=== PATIENT | female | born 1950 | race Caucasian/White ===

== ENCOUNTER → 2020-11-28 | Emergency (ER) | payer OTHER ==
[~2020-11-28] VITALS: Ht 162.6 cm; Wt 92.5 kg
[~2020-11-28] MED LIST: ANORO ELLIPTA1 EACH INH; BUPROPION XL300 MG PO; CALCIUM500 MG PO; CEFDINIR300 MG PO; LANSOPRAZOLE30 MG PO; LEVOTHYROXINE50 MCG PO; LISINOPRIL-HCT1 EACH PO; MULTIPLE VITAM1 EAC2 PO; MYRBETRIQ25 MG PO; NORVASC5 MG PO; ROPINIROLE HCL2 MG PO; ROSUVASTATIN CA10 MG PO; TYLENOL325 M1 PO; VENLAFAXINE HCL75 M2 PO; VITAMIN D350 MC3 PO; WELLBUTRIN SR150 MG PO
[2020-11-28 13:17] VITALS: BP 132/82
[2020-11-28 15:35] LABS: ABSOLUTE NEUTROPHILS 3.4 thou/uL (1.4-8.2); BASOPHILS 0.8 % (0.0-2.0); EOSINOPHILS 4.6 % (0.0-3.0); HEMATOCRIT 40.5 % (37.0-47.0); HEMOGLOBIN 13.7 gm/dL (12.0-15.0); LYMPHOCYTES 19.3 % (24.0-44.0); MCHC 33.7 g/dL (28.0-37.0); MCV 97.7 fL (80.0-100.0); MONOCYTES 11.3 % (1.0-8.0); PLATELET COUNT 196 thou/uL (150-400); RBC 4.14 mil/uL (4.20-5.00); RDW 13.6 % (10.5-14.5); WBC 5.4 thou/uL (4.0-11.0)
[2020-11-28 15:45] LABS: CALCIUM 9.7 mg/dL (8.5-10.1); CREATININE 1.1 mg/dL (0.6-1.0); POTASSIUM 3.7 mmol/L (3.5-5.1)
[2020-11-28 17:49] LABS: URINE BILIRUBIN NEGATIVE (Negative); URINE BLOOD 2+ (Negative); URINE CLARITY CLEAR; URINE COLOR YELLOW; URINE GLUCOSE-RANDOM* NEGATIVE (Negative); URINE KETONES NEGATIVE (Negative); URINE LEUKOCYTES-REFLEX TRACE (Negative); URINE NITRITE-REFLEX NEGATIVE (Negative); URINE PROTEIN (DIPSTICK) NEGATIVE (Negative); URINE SPECIFIC GRAVITY 1.025 (1.005-1.035); URINE UROBILINOGEN 0.2 E.U./dl (0.2-1.0)
[2020-11-28 17:57] LABS: AMP/METHAMP Negative (Negative); BARBITURATES Negative (Negative); BENZODIAZEPINES Negative (Negative); COCAINE Negative (Negative); METHADONE Negative (Negative); OPIATES Negative (Negative); PCP Negative (Negative)
[2020-11-28 18:08] LABS: BACTERIA-REFLEX 1-9 Few /HPF (None Seen); CASTS None Seen /LPF (None Seen); CRYSTALS None Seen /LPF (None Seen); SQUAMOUS 0-3 Few /LPF (0-3); URINE RBC 3-10 Few /HPF (0-2); URINE WBC-REFLEX 6-15 Few /HPF (0-5)
[2020-11-28 20:45] VITALS: BP 137/89
--- NOTE | 2020-11-29 07:11 | EKG ---
[address] [address] ELECTROCARDIOGRAM REPORT Name: FATOU NEWBERRY [id number] Admission: 11/28/20 Attend Phys: Discharge: Date of : 48 Report #: [id number] [facility] ED Test Date: 2020-11-28 Test Time: 16:25:15 Pat Name: FATOU NEWBERRY Department: Room: 170 Gender: F Skein Bleacher: vanesa : 1950 Requested By: Aster Reyes Order Number: [id number] MD: Jose Lawson Measurements Intervals [place] Rate: 64 P: 44 CA: 196 QRS: 24 QRSD: 94 T: 9 QT: 406 QTc: 419 Interpretive Statements Sinus rhythm No previous ECG available for comparison Electronically Signed On 11-29-2020 7:10:57 CDT by Jose Lawson [email or web address] <ELECTRONICALLY SIGNED> By: Jose Lawson MD, [facility] 11/29/20 0710 1625 1625 Jose Lawson MD, FACC /EPI
[2020-11-29 07:33] VITALS: BP 138/85
== END ==
LOC: ER 13:11 → EROBS 11-29 06:06 → ER 11-29 06:06
PROVIDERS: Emergency Medicine
DX: R45.1 Restlessness and agitation (principal); Z79.899 Other long term (current) drug therapy; Z20.822 Contact with and (suspected) exposure to COVID-19

== ENCOUNTER 2020-11-29 06:06 | Inpatient (IN) | payer OTHER ==
[~2020-11-29] VITALS: Ht 160 cm; Wt 77.7 kg
[~2020-11-29 06:06] MED LIST changes: -CEFDINIR300 MG PO; -TYLENOL325 M1 PO
--- NOTE | 2020-11-29 07:50 | NUR ---
PT ARRIVED TO UNIT VIA CART. PT HAS CANE AND ASSISTED HER TO DINING ROOM. GOT PT BELONGINGS AND GAVE HER A WALKER TO ASSIST WITH AMBULATION. PT ACCEPTING OF ADMIT. PT GIVEN BREAKFAST TO EAT. PT TOLERATED WELL WITHOUT ANY ISSUES.
[2020-11-29 08:00] VITALS: BP 124/80
--- NOTE | 2020-11-29 09:00 | NUR ---
KASSY MATT INTERVIEWING HER ON HER HISTORY. PT STATED SHE DOES SMOKE AND IF SHE COULD SNEAK IN HER E-CIG SHE COULD SMOKE IN HER ROOM. PT GOING OVER HER HX OF MEDICAL AND MENTAL HEALTH. PT STATED SHE WAS AT [facility] AND SHE HAD A BLEED AND PASSED BLOOD WITH CLOTS, BUT WAS UNABLE TO REMEMBER IF IT WAS STOOL. PT STATED SHE WAS GOING TO GET GI PROCEDURE, BUT THEY CANCELLED IT. SHE DID SAY HER BP CAME UP AND THEN SHE WAS DISCHARGE. PT DIDN'T REMEMBER IF SHE GOT BLOOD OR NOT, PT DID SAY SHE WAS HOOKED UP TO IV LINES. SHE DID SAY SHE BRUISED EASILY.
[2020-11-29 09:29] VITALS: BP 124/80
[2020-11-29] MEDS ORDERED: TYLENOL325 M1 PO (09:33)
[2020-11-29] MEDS ORDERED: CALCIUM500 MG PO (09:34)
[2020-11-29] MEDS ORDERED: CEFDINIR300 MG PO (09:40)
--- NOTE | 2020-11-29 11:29 | NUR ---
PT STATED SHE HAS SOME PAIN TO LEFT KNEE OF 8 ON 1-10 SCALE. PT ALSO HAVING PAIN TO LEFT. ADM TYLENOL 325MG 2 TABS PO FOR PAIN.
--- NOTE | 2020-11-29 12:10 | NUR ---
PT UPSET ABOUT NO SEAT COVERS FOR TOILET. PT ASKING IF WE HAVE INFECTION CONTROL HERE. PT SAID THAT THIS PLACE IS NOT SUITABLE FOR INPATIENT. PT SAID I GUESS I WON'T BE ADMITTED THEN.
--- NOTE | 2020-11-29 13:19 | NUR ---
As MANAGER WOMEN approached the nurses station, Cayla heard another staff discussing a pt who had become irritated yesterday and began using profanity towards staff. Cayla looked at job specification writer and stated, "and if someone doesn't answer my question that's what I'm going to be doing soon." MANAGER WOMEN asked if she could help Cayla who asked, "isn't there a community arts officer here? I just need help with one question." MANAGER WOMEN explained that US was on lunch and would return in 30 minutes. Pt immediately becomes agitated stating, "I'm paying to be here and she can't answer one question? I can't get a minute of her time?" MANAGER WOMEN relays that US will return in 30 minutes and walks away as pt follows closely stating, "oh thanks. You're a real agreeable person."
--- NOTE | 2020-11-29 14:30 | NUR ---
GOT A PHONE CALL FROM ANGELICA FOREMAN A FRIEND OF 40 YRS STATED THAT A FEW WEEKS AGO FATOU WENT TO URGENT CARE FOR DIZZINESS. SHE ENDED UP GOING TO [facility] FOR BP ISSUES. THE PT WAS TOLD TO HOLD ONE PILL AND SHE THOUGHT THAT IT WAS ALL HER MEDS. ANGELICA STATED FATOU HAS BEEN BIPOLAR MOST OF HER LIFE AND SHE OFFERED TO HELP HER SET UP HER MEDS AND FATOU THROUGH A FIT AND REFUSED HER HELP. SHE ALSO STATED THAT FATOU USES A CPAP AT NIGHT AND HAS NOT BEEN USING IT. ANGELICA ASKED WHY SHE ISN'T WEARING HER CPAP AND KNOWING WHAT THE DANGERS OF NOT WEARING IT, SHE SAID I KNOW. FATOU SAID THAT HER IS MAD AT HER AND THAT GOD HATES HER AND DON'T KNOW WHAT HE WANTS FROM ME. ANGELICA SAID FATOU THOUGHT IT WAS LENT THE OTHER DAY. SHE ALSO SAID FATOU HASN'T HAD MUCH SLEEP AND ONLY AND HOUR A NIGHT. HER SON CAME FROM [facility] TO STAY A COUPLE OF DAYS TO CONVINCE HER TO COME TO THIS HOSPITAL. HER ALSO LEFT THE HOUSE A COUPLE OF DAYS. ANGELICA SAYS IF SHE IS ALLOWED TO GO HOME, THAT SHE FEARS THAT SHE WILL NOT BE SAFE. FATOU IS GNOSTICISM AND TALKED TO A MEDICAL/SURGERY REGISTERED NURSE AND SAID THAT THERE IS PASSIVE SI DUE TO OMISSION. ANGELICA SAYS THAT IS THE TICKET FOR FATOU IS THE OMISSION OF MEDS AND USING CPAP.
[2020-11-29] MEDS ORDERED: BUPROPION XL300 MG PO (16:47)
[2020-11-29] MEDS ORDERED: LISINOPRIL-HCT1 EACH PO (17:25)
--- NOTE | 2020-11-29 17:57 | NUR ---
PT CHARLIE CAME TO VISIT. PT SHOWED HIM THE ADMISSION PAPERWORK. HE WENT OVER AND FINISHED SIGNING THEM. SHE NEEDED A SEAT RISER FOR THE TOILET DUE TO NEEDING ASSISTANCE WITH GETTING OFF THE LOW TOILET. THIS WEAVER NEEDLE LOOM PUT A COMMODE ON TOP OF TOILET.
[2020-11-29 18:31] LABS: ALBUMIN 3.6 g/dL (3.4-5.0); DIRECT BILIRUBIN 0.2 mg/dL (<0.1-0.2); TOTAL BILIRUBIN 1.1 mg/dL (0.2-1.0); TOTAL PROTEIN 6.3 g/dL (6.4-8.2)
--- NOTE | 2020-11-29 18:42 | NUR ---
PT CALLING TO SEE IF HE HAS HER PURSE. SHE REMEMBERS HIM COMING TO VISIT. PT FRIEND IS ANGELICA AND HER NUMBER IS [phone]. PT DOES GET SHORT TEMPERED WHEN AGITATED.
[2020-11-29 19:10] VITALS: BP 134/84
[2020-11-29 20:00] VITALS: BP 134/84
--- NOTE | 2020-11-30 02:02 | NUR ---
PATIENT HAS BEEN OUT SOCIALIZING WITH PATIENT'S IN DINING ROOM THIS EVENING. SHE HAD ICECREAM FOR A SNACK. SHE REQUESTED TO TAKE ROPRINOLE EARLY SO SHE COULD SLEEP. ORDER OBTAINED AND GIVEN TO PATIENT CLOSE TO BED TIME. MUSCLE CREAM ORDERED AND APPLIED TO LEFT THIGH. ALSO PLACED A WARM COMPRESS TO THE THIGH. PATIENT WENT BACK TO BED AND SLEPT BUT WANTED WARM COMPRESS WARMED BACK UP FOR COMFORT. TYLENOL 650MG PO GIVEN AROUND MIDNIGHT ALSO. PATIENT'S PAIN LEVEL WAS 5 OUT OF 10. PATIENT IS SLEEPING AT THIS TIME. SHE SLEEPS IN SPURTS AND THEN GETS UP TO THE BATHROOM OR WALKS AROUND IN THE ROOM AND BACK TO BED. PATIENT APPEARS RESTLESS. SHE DENIES SI/HI/AVH. PATIENT WALKS WITH WALKER AND HAS STEADY GAIT BUT IS A FALL RISK D/T WITHIN LAST 3 MONTHS SHE HAD INCIDENT WHERE HER LEGS WOULD JUST GO OUT FROM UNDER HER. BED IN LOW POSITION. ROUTINE ROUNDS TO ASSESS STATUS AND SAFETY TO PATIENT.
--- NOTE | 2020-11-30 04:08 | NUR ---
PATIENT CONTINUES TO BE UP EVERY 2 HOURS TO VOID. NO BURNING OR PRESSURE ON URINATION. PATIENT HAS HAD WARM COMPRESS FOR LEFT THIGH WARMED UP 3 TIMES SO FAR TONIGHT BUT STATES IT DOES BRING COMFORT TO THE LOW ACHE IN THIGH. PATIENT NOT RESTING FOR LONG PERIODS OF TIME. CONTINUING TO MONITOR. BED IN LOW POSITION AND BED ALARM IS ON.
[2020-11-30 09:10] VITALS: BP 132/57
--- NOTE | 2020-11-30 09:32 | NUR ---
Alert and orientated X4. Calm, cooperative and compliant. Interacting with peers and staff, participating in group. Denies SI/HI. Would like to shower today and compare med lists of medication she is on currently compared to list from previous hospitalization and home. Breath sounds clear. Reg HR auscultated. Color pink with brisk capillary refill and palpable peripheral pulses. Independent with voiding. Reports frequent voiding and occassional incontinence. Ambulates with regular, steady gait with walker.
--- NOTE | 2020-11-30 12:03 | NUR ---
ARGELIA and Dr. Sue met with pt, and had pt's on the phone. Pt had difficulty sitting still in her seat; she was more focused on finding her folder, her pencil, and paper. Pt's gave some feedback and said that while he dealt with her olvin at the beginning of their marriage and throughout, but this is the worst he has ever seen her. 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 SW team will continue to follow pt during his stay on this unit.
[2020-11-30 19:09] VITALS: BP 144/87
--- NOTE | 2020-11-30 21:41 | NUR ---
assumed kumar on 11/30/20 @ 1900, in her room, fussing with her toileries and hospital pants. Refused meds and assessment, because she said she wanted to go find some more pjs. Refused to listen to explaination that I will be getting the hospital pants for her, and that I needed to give her meds, she walked out of the room with a pair of hospital pants. When I returned to give her her meds she pounded the walker on the floor in a physically agressive manner. Asked for a list of the meds she was taking, and I wrote those down for her on a piece of her paper. She read it and said she aproved. Denies additional needs and says she is going to be awake for a while.
[2020-11-30 21:47] VITALS: BP 144/87
--- NOTE | 2020-12-01 09:07 | NUR ---
Assess due to new admit to [facility] for agression, agitation. Tolerating meals well, 75-100%. Wt is obese with BMI 31. Meds reviewed. B12 wnl. Low nutrition risk
[2020-12-01 12:26] LABS: HEMATOCRIT 45.4 % (37.0-47.0); HEMOGLOBIN 15.2 gm/dL (12.0-15.0); MCH 32.7 pg (26.0-34.0); MCHC 33.5 g/dL (28.0-37.0); MCV 97.8 fL (80.0-100.0); RBC 4.64 mil/uL (4.20-5.00); RDW 13.5 % (10.5-14.5); WBC 6.7 thou/uL (4.0-11.0)
[2020-12-01 19:27] VITALS: BP 123/81
--- NOTE | 2020-12-01 21:27 | H ---
[facility] [place] [address] HISTORY AND PHYSICAL Name: FATOU NEWBERRY Room #: 522A-A ADM IN M.R.#: [id number] Admission: 11/29/20 Attend Phys: Rigo Sue DO Discharge: Date of : 48 Report #: [id number] THIS REPORT FOR: cc: Nasreen Jung MD, Amir R. MD Kerstein,Rigo Kwong DO ~ DATE OF SERVICE: 11/29/2020 INPATIENT PSYCHIATRIC EVALUATION ATTENDING PHYSICIAN: Rigo Sue DO INSTRUCTIONAL DEVELOPER: Adriana Costa MD REASON FOR ADMISSION: Olvin, anxiety, inability for to care for the patient. SOURCES OF INFORMATION: Emergency Room records, interview with the patient. The patient is a full code and her own decision maker at this point. HISTORY OF PRESENT ILLNESS: This is a 70-year-old female voluntary admission. The patient presented to the Emergency Room on Sunday evening. She has been having quantity increased episodes of "violence" and memory difficulties for the past few weeks. reports episodes in which she bangs on the wall and she also throw profanities, which is unlike her base time. She has become increasingly violent during interactions, is slamming things when frustrated and has become irritated with others faster. The patient recently had a hospitalization for abdominal pain, dehydration, hematochezia reportedly at [facility]. Physician there discussed changing and identifying medications but nothing was changed and she was discharged. Since then given her increased confusion the patient and her are concerned with the possibility of medications being missed or mixed up altogether. The patient has been seeing Dr. Jani Crane, psychiatrist and [facility] for several years and reportedly he has ruled out the dementia. I left a voicemail for Dr. Crane to call me. I have not received a reply at this time to discuss the dementia workup that was done and his observations of the case. Additionally, the ER reported the patient had an appointment with Dr. Crane yesterday. I am guessing that was the 11/27/2020 or 11/28/2020 that probably told by telepsych and he told the patient she needs to be hospitalized and her medications need to be reconciled as soon as possible. The patient was unwilling at first to do so, but after her called her son to talk with her she became agreeable. The ER noted the patient has a long history of mental health issues and "good and bad days" per . She was not suicidal or homicidal in the ER. Denied physical complaints. [address] [address] HISTORY AND PHYSICAL Name: FATOU NEWBERRY Room #: 522A-A [facility] IN M.R.#: [id number] Admission: 11/29/20 Attend Phys: Rigo Sue, Discharge: Date of : 48 Report #: [id number] ALLERGIES: No known drug allergies. LABORATORY DATA: From the ER, sodium 144, potassium 3.7, chloride 107, bicarbonate 29, anion gap 8, BUN 15, creatinine 1.1, estimated GFR 49, glucose 82, calcium 9.7. Hematology: White count 5.4, H and H 13.7 and 40.5, platelet count 196, COVID-19 PCR was negative. Urine drug screen was negative. Urinalysis showed a few leukocytes, rbc's, few squamous cells, 1-9 bacteria, trace leukocyte esterase and nitrites were negative, and blood was 2+. Other laboratories done, did the hepatic function tests just starting Depakote, total bilirubin 1.1, direct bilirubin 0.2, AST 17, ALT 23, alkaline phosphatase 81, total protein 6.3, albumin 3.6. B12 level 606, TSH 2.377, both of which are normal. PHYSICAL EXAMINATION: VITAL SIGNS: Today, temperature 36.2, pulse 60, respirations 16, BP 124/80, O2 sat 99%. There is not a weight listed; checked under different area, that has not been done. BACKGROUND HISTORY: The patient gave the developmental history, born and raised in [place], [place]. Her father was a manual labor. Her mother was a registered nurse at a local hospital there. 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 Her was at the [employer]. They were stationed at [facility]. She has one son who is now 51. Her initial had an infidelity. She was . She was remarried to her current , Nikolas. They have been about 20 years. The patient did not outright admit she had bipolar 1 disorder, though this I got from nursing report to me she seemed more familiar with the term manic depression. Denied schizophrenia. Denied family history of mental illness. PAST MEDICAL HISTORY: Hospitalist noted was hypertension, hyperlipidemia. EKG was done, sinus rhythm. QTC was 419, normal rate. She apparently also has hypothyroidism to medical problems. FAMILY HISTORY: For Psychiatric and medical disease is unknown. Additional medical problems, bladder, urgency, history of cervical cancer, possible COPD, who also smells, does have a history of smoking cigarettes, though she did not admit that to me. REVIEW OF SYSTEMS: Ten-point review of systems was reviewed by the hospitalist are negative. CURRENT MEDICATIONS: Oxybutynin 10 mg oral daily, pantoprazole 40 mg oral daily, levothyroxine 50 mcg oral daily, Depakote ER schedule 750 mg at bedtime [facility] [address] [place] [address] HISTORY AND PHYSICAL Name: FATOU NEWBERRY Room #: 522A-A ADM IN .R.#: [id number] Admission: 11/29/20 Attend Phys: Rigo Sue DO Discharge: Date of : 48 Report #: [id number] tonight, atorvastatin 20 mg p.o. at bedtime, cefuroxime 250 mg p.o. b.i.d. for 5 days for possible UTI, amlodipine 5 mg oral daily for hypertension. Otherwise, Tylenol was noted to be ordered. She also has albuterol, ipratropium bromide 3 mL inhaled q. 4 hours p.r.n. ordered. MUSCULOSKELETAL EXAM: Assisted gait with walker, a little bit kyphotic, slow. MENTAL STATUS EXAMINATION: This is a well-developed, fairly nourished female appearing nearly stated age. Attention intact. Concentration intact. Speech pressured. mood/affect, irritable, manic grandiose congruent Thought process is linear in general. Thought content: Focused on the questions I asked. Some psychomotor agitation. No psychomotor retardation. Denied SI or HI. Denied auditory, visual, or tactile hallucinations. Memory not formally tested. Insight limited. Judgment limited. Fund of knowledge least average. FORMULATION: A 70-year-old female brought in by with the apparent olvin going on. DIAGNOSES: Bipolar 1 disorder, most recent episode manic, severe hypertension, hyperlipidemia, hypothyroidism. PLAN: Evaluate, stabilize, obtain collateral. I have started her on Depakote ER 750 mg p.o. at bedtime. Blood level 4-5 days. We will continue to monitor mood. STRENGTHS: She is insured, supportive family. WEAKNESSES: Advancing age along with history of mental health problems. greater than 60 minutes spent on case- greater than 50% of time psent on review of records and coordination of care <ELECTRONICALLY SIGNED> By: Rigo Sue DO 12/01/202126 46 27 Rigo Sue DO /nt
--- NOTE | 2020-12-02 02:49 | NUR ---
Assumed care on 12/01/20 @ 1900, socializing with two other female peers. Cooperated with assessment, A&Ox 4. Pleasant affect. Some confusion noted. Effort shown to present an improved affect. Expresses a desire to return home. Reports anxiety level of 6/10 and Depression of 6/10. Denies EDMONDSON/HV. Spoke to her on the phone. She commented on the conversation with her , saying, "I lean on him too much". VSS. HRRR, Lungs CTA, ABD n x 4Q. Reports IBS symptoms, no BM today, reports BM yesterday. Awoke @ about 0200 in the NOC. Some confusion noted. Sat up in the day room for a while, Toileted self and returned to bed. Bed in low position, will continue to monitor as per unit protocol.
[2020-12-02 03:11] VITALS: BP 123/81
[2020-12-02 09:25] VITALS: BP 133/82
--- NOTE | 2020-12-02 15:55 | NUR ---
0700 ASSUMED CARE OF PATIENT. PATIENT AMB WITH SLOW AND STEADY GAIT WITH WALKER. PATIENT SITS WITH OTHERS COMMUNICATING WELL. AT TIMES PATIENT YELLS AT STAFF CURSING AND USING WAKER TO STOMP WITH. PATIENT DOES NOT LIKE TO BE HELPPED WHEN NEEDES AND GETS UPSET WHEN STAFF TRYS TO ASSIST WITH NEEDS. PATIENT PRESENT IN GROUPS TODAY. MEDICATION TAKEN WHOLE WITHOUT DIFFICULTY. BS ACTIVE, NO C/O PAIN. DENIES SI/HI
[2020-12-02 19:31] VITALS: BP 134/87
[2020-12-03 03:40] VITALS: BP 134/87
--- NOTE | 2020-12-03 04:02 | NUR ---
Assumed care on 12/02/20 @ 1900, says she has pain, but then Refused to answer what her pain level is. Tylenol 650 and Jac Webster topical rub provided for knee and back pain. Uses a walker to ambulate, retired to bed @ , bed in low position, bed alarm set. Will continue to monitor for safety and comfort as per unit protocol.
[2020-12-03 09:12] VITALS: BP 121/74
[2020-12-03 10:25] VITALS: BP 121/74
--- NOTE | 2020-12-03 10:52 | NUR ---
1045 RESUMMED CARE FROM OVERNIGHT SHIFT THIS AM, PATIENT ALERT ORIENTED TIMES 4. PATIENT CALM COOPERATIVE PATIENT DENIES SI/HI/AH/VH AT PRESENT. PATIENTS ABDOMEN SOFT BOWEL SOUNDS PRESENT PATIENTS LUNGS CLEAR. PATIENT TAKES MEDICATION WITHOUT INCIDENCE. PATIENT PARTICIPATES IN GROUPS WILL CONTINUE TO MONITOR PATIENT SAFETY AND BEHAVIORS.
[2020-12-03 19:34] VITALS: BP 112/73
--- NOTE | 2020-12-04 01:03 | NUR ---
Alert and orientated X4. Denies SI/HI. Ambulating around room with walker without s/o distress, slightly irregular gait. Breath sounds clear. Reg HR auscultated. Color pink with brisk capillary refill and palpable peripheral pulses. Independent with voiding. Active bowel sounds over soft, rounded abdomen. Currently sleeping without s/o distress.
[2020-12-04 09:01] VITALS: BP 135/78
--- NOTE | 2020-12-04 18:27 | NUR ---
0700 ASSUMED CARE OF PATIENT. PATIENT AMB WITH WALKER WITH STEADY GAIT. PATIENT WANTS TO DO EVERYTHING INDEPENDENTLY WITHOUT ASSISTANCE. PATIENT GETS MAD WHEN LIFE SCIENCE TEACHER ATTEMPTS TO HELP PATIENT. MEDICATION TAKEN WHOLE WITHOUT DIFFICULTY. LS CLEAR, BS ACTIVE, NO C/O PAIN. VISITOR HERE TO VISIT WITH PATIENT. DENIES NEEDS AT THIS TIME.
[2020-12-04 19:38] VITALS: BP 111/60
--- NOTE | 2020-12-05 00:41 | NUR ---
Alert and orientated X4. Denies SI/HI. Sad, flat affect. Ambulates with slow gait using walker. Breath sounds clear. Reg HR auscultated. Color pink with brisk capillary refill and palpable peripheral pulses. Yellow urine per toilet. Active bowel sounds over soft, rounded abdomen. States she has pain in her feet but declines medication. Currently sleeping without s/o distress.
[2020-12-05 08:49] VITALS: BP 111/93
--- NOTE | 2020-12-05 17:45 | NUR ---
ASSUMED CARE OF PATIENT, PATIENT IN BED AT THAT TIME. PATIENT AMB USING WALKER WITH STEADY GAIT. NO BEHAVIORS NOTED FROM PATIENT. PATIENT CONFUSED AND FORGETFUL AT TIMES. MEDICATION TAKEN WHOLE WITHOUT DIFFICULTY. NO C/O PAIN, LS CLEAR , BS ACTIVE LBM 12/03/20.
[2020-12-05 19:20] VITALS: BP 113/71
--- NOTE | 2020-12-05 22:55 | NUR ---
PT AMBULATING TO BATHROOM WITH ASSIST X1 AND IS TOLERATING FAIR. DENIES PAIN. RESTING COMFORTABLY. NO NEEDS VOICED. FREQUENT OBSERVATION.
[2020-12-06 08:48] VITALS: BP 110/67
--- NOTE | 2020-12-06 11:55 | NUR ---
ARGELIA and Dr. Sue both called pt's to give an update. He said he was out of town working in [facility]. He said he will not be in for a visit today. He was currently driving. Dr. Sue asked him to call his cell when he was available. ARGELIA team will continue to follow pt during her stay on this unit.
--- NOTE | 2020-12-06 12:29 | NUR ---
0700 ASSUMED CARE OF PATIENT, PATIENT IN DAYROOM AT THAT TIME. PATIENT AMB WITH WALKER WITH STEADY GAIT. NO C/O PAIN. LS CLEAR, BS ACTIVE. PATIENT PRESENT IN GROUP THIS AM. MEDICATION TAKEN WHOLE WITHOUT DIFFICULTY. PATIENT CONFUSED AND VOICED CONCERN RARDING HER CUP OF WATER BEING THROWN AWAY. PIPE CLEANER ATTEMPT TO EXPLAIN ABOUT LEAVING DRINKS ON TABLES, PATIENT WOULD NOT LISTEN AND STATES "IT DOES NOT MATTER, ITS MY DRINK". WILL CONTINUE TO OBSERVE.
[2020-12-06 19:34] VITALS: BP 129/112
--- NOTE | 2020-12-07 01:41 | NUR ---
MEDICATION GIVEN WHOLE WITH WATER PT TOLERATED MEDS WELL. DENIES PAIN, N/V. UP WITH ASSISTX1 WITH A WALKER. FREQUENCY IN URINATION. FALL PREC MAINTAINED WILL CONT TO MONITOR.
[2020-12-07 08:51] VITALS: BP 153/84
--- NOTE | 2020-12-07 08:53 | NUR ---
RT Progress Note- Cayla is present in the milieu each day as well as most recreation therpay groups. Cayla's participation is variable; at times she has difficutly focusing on discussion/activity and is wrapped up in her own agenda. She can be irritable when refocusing, but is not aggressive. Cayla occasionally socializes with female peers on unit during unstructured times. TIMBER TRIMMER will continue to encourage participation and improved focus.
--- NOTE | 2020-12-07 11:57 | NUR ---
Followup: remains on [facility]. Intake has dropped a little, now 25-100% past few days, Wt is stable over past week at 177 lb. Note no BM since 12/03-consider stool softner. Otherwise remains low nutrition risk and will continue to follow intake and wt trends.
--- NOTE | 2020-12-07 17:32 | NUR ---
0700 ASSUMED CARE OF PATIENT, PATIENT IN BED AT THAT TIME. PATIENT AMB WITH STAEDY GAIT USING WALKER. MEDICATION TAKEN WHOLE WITHOUT DIFFICULTY . PRESENT IN GROUP THIS AM. NO C/O PAIN, BS ACTIVE. PATIENT PREFERS TO DO THIS ALONE WITHOUT ASSISTANCE. CALM AND COOPERATIVE. A + O X4.
[2020-12-07 19:03] VITALS: BP 106/54
--- NOTE | 2020-12-08 02:23 | NUR ---
ASSESSMENT: PT REMAIN ALERT AND ORIENT TIMES FOUR. UP INDEPENDANTLY WITH WALKER. REMAINED CALM AND COOPERATIVE THROUGH OUT THE SHIFT. VSS. AFEBRILE. LIKES TO DO THINGS FOR HERSELF. TOOK MEDS WITHOUT DIFFICULTY. BM LAST ON . DENIES PAIN, SOB AND N/V. WILL CONTINUE TO MONITOR.
[2020-12-08 11:33] VITALS: BP 130/64
[2020-12-08 11:35] VITALS: BP 113/72
--- NOTE | 2020-12-08 11:50 | NUR ---
ARGELIA and Dr. Sue met with Ray (Nikolas) and provided an update. He would like to take have pt placed in respite to get an idea of what it will require to take care of her going forward. ARGELIA provided Nikolas with a list of nursing homes to consider for respite care. Pt's anticipated d/c will be at the beginning of the week. SW team will remain available.
--- NOTE | 2020-12-08 13:40 | NUR ---
PATIENT HAS BEEN UP, AND OUT ON THE UNIT, AMBULATE WITH ASSIST OF ROLER WALKER, GAIT SLIGHTLY UNSTEADY. PATIENT TOOK ALL MORNING MEDICATION WHOLE WITHOUT DIFFICULTY, SHE IS EATING MEALS, AND DRINKING FLUID WELL. PATIENT DENIES SUICIDAL/HOMICIDAL IDEATION, SHE DENIES DEPRESSION/ANXIETY. ORTHOSTATIC BLOOD PRESSURE SITTING/STANDING ORDERED BY DR. BABIN COMPLETED, CHARTED, AND DR. BABIN NOTIFIED OF THE RESULT. PATIENT STATES HER LAST BOWEL MOVEMENT WAS ON 12/07/20. NO AGITATION OR IRRITABLE BEHAVIOR NOTED AT THIS TIME. AFFECT IS FLAT/BLUNTED, MOOD IS CALM, NO SIGN OF ACUTE DISTRESS NOTED AT THIS TIME, WILL MONITOR FOR SAFETY.
[2020-12-08 19:36] VITALS: BP 97/60
--- NOTE | 2020-12-09 02:59 | NUR ---
Alert and orientated X4. Denies SI/HI. Ambulating with slow, steady gait with walker. Calm and cooperative, flat affect. Breath sounds clear. Reg HR auscultated. Color pink with brisk capillary refill and palpable peripheral pulses. Independent with voiding. States she had BM yesterday. 2 cm circular area in L inguinal fold with erythema and excoriation. Currently sleeping without s/o distress.
[2020-12-09 09:34] VITALS: BP 106/61
[2020-12-09 11:58] VITALS: BP 106/61
--- NOTE | 2020-12-09 12:26 | NUR ---
Assumed pt care at 0700. pt was alert and oriented x3. pt took meds whole, no difficulty noted. Assessments completed, vss. Pt DENIES SI/HI. No c/o pain at this time. Pt ambulates with a walker. Calm and co-operative with care. No sign of acute distress noted at this time. Will continue to monitor pt.
[2020-12-09 20:30] VITALS: BP 133/58
--- NOTE | 2020-12-10 00:15 | NUR ---
Alert and orientated to person and time and situation. Initially stated she was at [facility]. Seems to be ambulating much more slowly with regular, steady gait with walker. Also requiring more help with directions to her room and with assistance getting in and out of bed. Denies SI/HI. Breath sounds clear. Reg HR auscultated. Color pink with brisk capillary refill and palpable peripheral pulses. Incontinent of yellow urine. Active bowel sounds over soft, rounded abdomen. Currently sleeping without s/o distress.
[2020-12-10 10:05] VITALS: BP 113/69
[2020-12-10 10:58] VITALS: BP 113/69
--- NOTE | 2020-12-10 11:50 | NUR ---
Assumed pt care at 0700. pt was calm and co-operative with care. Assessments completed, vss. pt took meds whole, no difficulty noted. ALERT AND ORIENTED X3. AMBULATES WITH A WALKER. PARTICIPATED IN GROUPS. Denies si/hi. there is no c/o of pain at this time. BANQUET BARTENDER assisted pt with a shower. Will continue to monitor pt.
--- NOTE | 2020-12-10 14:44 | NUR ---
ARGELIA spoke with pt's Ray and obtained his prefernces for referrals for a skilled/respite stay for pt. [facility] will continue to follow pt during her stay on this unit.
[2020-12-10 19:29] VITALS: BP 123/69
--- NOTE | 2020-12-10 22:50 | NUR ---
Alert and orientated to person and situation, unable to recall day and thinks she is at [facility]. Watching TV with peers prior to meds. Denies SI/HI. States she did not have good visit with today, states he is making different plans other than what they had originally agreed. After meds she seemed more confused and had difficulty with directions t/o unit. Came out into hallway topless with shirt on floor. When asked where she was going she stated she was trying to find bathroom. Needed alot more assistance toileting and getting to her feet from toilet. Breath sounds clear. Reg HR auscultated. Color pink with brisk capillary refill and palpable peripheral pulses. Yellow urine per toilet. Active bowel sounds over large, soft, rounded abdomen. Declines MOM stating that she feels she does not need it yet. Last BM was 12/07/20. States she had large BM at that time. Ambulating slowly with steady gait with walker. Currently resting in bed without s/o distress.
[2020-12-11 08:23] VITALS: BP 104/64
--- NOTE | 2020-12-11 17:53 | NUR ---
Assumed pt care at 0700. pt was alert and oriented x3. pt took meds whole, no difficulty noted. Assessments completed, vss. Denies si/hi. At this time there is no c/o pain. ambulates with a walker. participated in groups. no sign of acute distress noted upon assessments. calm and co-operative with care. will continue to monitor.
[2020-12-11 19:35] VITALS: BP 130/79
--- NOTE | 2020-12-11 23:09 | NUR ---
PT WANDERS IN DAY ROOM AND MACE WITH WALKER, CHECKING ON TABLES, LEGS, DOORS. PT TALKING ABOUT MATH AND FURNITURE. HUNCHED OVER, POOR EYE CONTACT, MUMBLED SPEECH AT TIMES. COMPLIANT WITH MEDS AND SNACK. INCONTINENT. COMPLIANT WITH ADL CARE. BED ALARM ON. BLE EDEMA DUSKY SKIN TONE.
[2020-12-12 09:30] VITALS: BP 123/64
[2020-12-12 10:41] VITALS: BP 123/64
--- NOTE | 2020-12-12 11:04 | NUR ---
ASSUMED CARE AT 0700 THIS MORNING. PT. IS AWAKE, DRESSED AND ON THE UNIT. SHE IS COOPERATIVE WITH THIS RN TAKING HER MEDICATIONS. HER LEGS BILAT. HAVE A PURPLEISH COLOR AND IS EDEMATIOUS AND FIRM. SHE DECLINED MOM ALTHOUGH HER LAST BM WAS 12/07/20. HER VSS. SHE GOT A ONE TIME DOSE OF FLUCANOZOLE TODAY. WILL CONTINUE TO MONITOR.
--- NOTE | 2020-12-12 13:58 | NUR ---
RT PROGRESS NOTE- AT THIS TIME FATOU'S PARTICIPATION IN THE [facility]U AND RECREATION THERAPY GROUPS HAS BEEN GREAT. FATOU HAS STRUGGLED WITH REMEMBERING THINGS BUT CAN BE EASILY REDIRECTED. SHE ACCEPTS THAT SHE HAS TROUBLE WITH MEMORY AND ACCEPTS ASSISTANCE WHEN NEEDED.
[2020-12-12 19:27] VITALS: BP 131/60
[2020-12-12 20:15] VITALS: BP 131/60
--- NOTE | 2020-12-13 02:30 | NUR ---
PATIENT WAS UP WITH WALKER TONIGHT. SHE IS IMPULSIVE AND RESTLESS. SHE KEPT WANTING TO GET UP AND MOVE FROM ONE CHAIR TO ANOTHER. SHE MOVES VERY SLOW AND SO IT TOOK ALOT OF EFFORT EVERY TIME SHE WOULD STAND AND DECIDE TO MOVE SOMEWHERE ELSE. PATIENT IS A/0X1. SHE SITS HUNCHED OVER. SHE WAS HALLUCINATING TONIGHT THINKING SHE SAW THINGS ON THE FLOOR AND TRYING TO PICK THEM UP. PATIENT HAD HS SNACK OF ICE CREAM. SHE TOOK HER MEDS WHOLE WITH WATER. SHE DENIES PAIN. NO SI/HI BEHAVIORS OR STATEMENTS NOTED. PATIENT ASSISTED TO BED X1. SHE HAS BEEN SLEEPING SINCE PLACED IN BED. BED IN LOW POSITION AND BED ALARM IS ON. ROUTINE MONITORING TO ASSESS FOR SAFETY AND STATUS OF PATIENT.
[2020-12-13 10:20] VITALS: BP 127/60
[2020-12-13 13:13] LABS: BE(vivo) 3.1 mmol/L (-2 to +3); HCO3 26.2 mmol/L (22.0-26.0); PCO2 35.6 mmHg (35.0-45.0); pH 7.485 (7.360-7.450); sO2 96.2 % (92.0-98.0)
--- NOTE | 2020-12-13 13:23 | NUR ---
Nikolas, pt's , contacted ARGELIA to get an update on if she has been accepted to skilled. ARGELIA provided the update that she is not ready for d/c because Dr. Sue is switching her psych meds to see if it controls her hallucinations better. He said ok. ARGELIA told him she will follow-up with the referrals she has already sent. He said okay. He said he will visit pt during the evening visitation hours and wants to visit with Dr. Sue. ARGELIA provided this update to Dr. Sue. SW Team will continue to follow pt during her stay on this unit.
[2020-12-13 13:48] VITALS: BP 127/60
--- NOTE | 2020-12-13 15:51 | NUR ---
1550 RESUMMED CARE FROM OVERNIGHT SHIFT THIS AM, PATIENT IN ROOM QUIET. I GOT PATIENT UP FOR BREAKFAST SHE ATE TOOK MEDICATION WITHOUT INCIDENCE. PATIENT ALERT ORIENTED TIMES 2 PATIENT DENIES SI/HI/AH BUT DOES HAVE VH AT TIMES. PATIENT BENDS DOWN AND ACTS LIKE SHE IS PICKING THINGS THAT ARE NOT THERE ON THE FLOOR. PATIENTS ABDOMEN SOFT BOWEL SOUNDS PRESENT PATIENTS LUNGS CLEAR. ABOUT 10:00 AM PATIENT IN DAY ROOM SEEMED LETHARGIC WE TOOK VITALS PULSE WAS 65. DR ZAZUETA CAME AND ORDERED ARTERIAL BLOOD GAS, THE RESULTS SHOWED HIGHS AND LOW RESULT. PATIENT TOOK NAP AND WOKE UP REFRESHED SHE PARTICIPATED IN GROUPS. WILL CONTINUE TO MONITOR PATIENT FOR SAFETY AND BEHAVIORS.
[2020-12-13 19:48] VITALS: BP 137/63
--- NOTE | 2020-12-14 02:06 | NUR ---
SOME NOTED RESTLESSNESS AT APPROX 2000-INITALLY SITTING IN DAYROOM EATING ICE CREAM-WATCHING TV-NOTED TO GET UP FROM CHAIR CAUSING CHAIR ALARM TO SOUND TAKES A FEW STEPS BUT THEN RETURNS TO SAME CHAIR-WHEN ASKED STATES THAT HER "RESTLESS LEG"IS "ACTING UP AND ASKING FOR HER REQUIP. COOPERATIVE WITH ALLOWING PHYSICAL ASSESSMENT AND DOES REPORT SOME PAIN TO LE BILAT FROM SWELLING TO FEET AND ANKLES-NOTED TO HAVE HARD TENSE NON-PITTING EDEMA BILAT. FEET ARE COOL TO TOUCH. IS COOPERATIVE WITH SITTING IN RECLINER WITH FEET ELEVATED-ALTHOUGH DOES STATE THIS POSITION MAKES KNEE PAIN WORSE AND IS RTEQUESTING MUSCLE RUB PRN TO KNEES FOR JOINT PAIN RATED A 5 ON 1-1O SCALE-DOES REPORT DECREASE IN PAIN APPROX 10 MINUTES AFTER APPLICATION. CONTINUES ON HIGH FALLS PRECAUTIONS.
[2020-12-14 09:38] VITALS: BP 105/59
--- NOTE | 2020-12-14 11:00 | NUR ---
Followup: continues to eat 75-100% and wts are consistently stable at 177 lb. Remains low nutrition risk
--- NOTE | 2020-12-14 12:22 | NUR ---
Alert and orientated to person, place and situation but not to time. Denies SI/HI. Calm, cooperative and compliant. Pushing self in WC t/o unit but is able to stand with assistance, slow with transfers. Breath sounds clear. Reg HR auscultated. Color pink with brisk capillary refill and palpable peripheral pulses. +2 edema in lower extremities. Erythema and slight excoriation in inguinal folds, cleaned and nystatin powder applied. Brief dry. Active bowel sounds over large, soft abdomen.
--- NOTE | 2020-12-14 15:48 | NUR ---
Pt noted to become increasingly disoriented/confused during RT group this pm- aprx 1500. She began group moderately alert and oriented and participated in card game with minimal instruction. Around 1500 pt noted to become drowsy, and announce that she was going to have to stop playing game as she had to "take care of some business. Send off some letters." When oriented to location and situation, pt states, "I'm just going down the street. I've got to get to my so we can mail off these letters. I will see you all later." Presently self ambulating in wheelchair in hallways mumbling to self.
[2020-12-14 19:17] VITALS: BP 132/84
[2020-12-15 00:38] VITALS: BP 132/84
--- NOTE | 2020-12-15 00:47 | NUR ---
Assumed care on 12/14/20 @ 1900, Awake, Alert and Oriented x 2-3. Cannot give the full name of the hospital, but remembers that it is [facility]. HRRR, Lungs clear Bilat, ABD N BS, and reports a BM yesterday, which the offgoing nurse agrees with in report. Nystatin applied to redness in inguinal area. Reports enjoyed visiting with today. Compliant with medication administration, taking meds whole with thin water. Retired to bed @ , bed in low position, bed alarm set, will continue to monitor as per unit protocol for safety and comfort.
[2020-12-15 11:00] VITALS: BP 100/68
--- NOTE | 2020-12-15 12:27 | NUR ---
1230 RESUMMED CARE FROM OVERNIGHT SHIFT THIS AM, PATIENT IN ROOM LYING QUIET IN BED. PATIENT GOT UP ATE BREAKFAST TOOK MEDICATION WITHOUT INCIDENCE. PATIENTA AABDOMEN SOFT BOWEL SOUNDS PRESENT PATIENTS LUNGS CLEAR. PATIENT ALERT ORIENTED TIMES SELF HAS SOME CONFUSION. PATIENT CALM COOPERATIVE WORKED WITH PT TODAY WITH WALKER. PATIENT SOMETIMES WILL WALK AND FORGET THE WALKER. PATIENT DENIES SI/HI/AH/VH AT PRESENT PATIENT DOES PARTICIPATE IN GROUPS. WILL CONTINUE TO MONITOR PATIENT FOR SAFETY AND BEHAVIORS.
--- NOTE | 2020-12-15 15:45 | NUR ---
ARGELIA received a vm from [employer] stating that have spoken with [facility] and are working towards bringing pt there. Said they will call ARGELIA again when everything has been finalized. ARGELIA received a call from [facility] requesting an assessment for pt. ARGELIA schedule a video assessment for tomorrow at 10:30 am. ARGELIA received a call from Erica with [facility] stating she received a call from Nikolas stating that [facility] has not received requested documents although she sent them twice. ARGELIA called [facility] again and gave them her fax number. The bilingual receptionist said she will fax again. SW team will continue to follow pt during her stay on this unit.
[2020-12-15 19:08] VITALS: BP 145/52
--- NOTE | 2020-12-15 19:57 | NUR ---
PT WANDERING HALLS SITTIN IN W/C GRABBING AT AIR, LR AND RAILS. PT COMPLIANT WITH MEDS AND HS SNACK. PT RQUESTED WATER. PT IS SLOUCHED OVER IN W/C. PT POURED WATER INTO HER ICE CREAM AND ATTEMPTED TO PUT HER SPOON DOWN HER PANTS. EASILY REDIRECTED AND DISTRACTED. PT INCONTINENT AND COMPLIAN WITH ADLS. UNSTEADY GAIT. BLE EDEMA REDDNEED AND DUSKY.
[2020-12-16 07:55] VITALS: BP 95/53
--- NOTE | 2020-12-16 12:06 | NUR ---
ARGELIA assisted pt in completing an assessment with [facility]. ARGELIA contacted [facility] and spoke to Jose who said that he was just waiting on a d/c date for pt. ARGELIA explained that pt is ready to go when she has been accepted. He said he will contact [facility] and ask if he wants to go ahead and go with an apartment with them. SW team will continue to follow pt during her stay on this unit.
--- NOTE | 2020-12-16 16:46 | NUR ---
PATIEN HAS BEEN CALM AND PRETTY PLEASANT WITH CARES THIS AFTERNOON. ALERT ORIENTED TO SELF. RESPIRAITONS ARE NON LABORED. SHE IS NOW UP ON W/C AND PROPELS SELF ABOUT FACILITY. WILL CONT WITH PLAN OF CARE.
[2020-12-16 19:06] VITALS: BP 117/86
--- NOTE | 2020-12-17 00:31 | NUR ---
IN ROOM SITTING ON SIDE OF BED UPON INITIAL ASSESSMENT THIS PM-GREETED STAFF PLEASANTLY AND DENIES ANY COMPLAINTS/CONCERNS DURING PM ASSESSMENT OTHER THEN FEELING "TIRED" STATES IT WAS A "BIG DAY" REFERRING TO DIAGNOSTIC TEST EARLIER IN AM. DENIES ACUTE ANXIETY STATING "DON'T BRING IT UP IT'S PRETTY GOOD RIGHT NOW- BUT IT WAS BAD THIS MORNING"REQUESTED AND RECEIVED TRAZADONE 50MG PO PRN FOR SLEEP. COMPLIENT WITH HS MEDICATIONS. APPEARS TO BE RESTING IN BED WITH EYES CLOSED SINCE APPROX 224
--- NOTE | 2020-12-17 04:59 | NUR ---
IN BED RESTING QUIETLY WITH EYES CLOSED ON INITIAL ASSESSMENT THIS PM. DENIES C/O PAIN/DISCOMFORT. REPORTS BM THIS AM AND DENIES SHORTNESS OF BREATH OR COUGH. VITAL SIGNS WNL. ORIENTED TO PERSON AND HOSPITAL BUT NO TO DATE. DENIES ACUTE ANXIETY AND STATES MOOD IS "PRETTY GOOD JUST TIRED" COMPLIENT WITH TAKING MEDICATIONS WHOLE. SIDE RAILS UP X3 AND BED EXIT ALARM ACTIVATED-ENCOURAGED TO CALL OUT IF NEEDING HELP TO USE BR OR GET OUT OF BED D/T HIGH FALL RISK.
[2020-12-17 09:35] VITALS: BP 106/70
--- NOTE | 2020-12-17 11:36 | NUR ---
ARGELIA contacted [facility] and arranged d/c for Sunday12/20/20 @1030. [facility] will transport pt . Pt needs a covid test. Could not d/c today as facility has 4 intakes today and 1 nurse. ARGELIA contacted Nikolas and left a msg with an update on pt's d/c. ARGELIA provided an update to medical staff of pt's discharge.
--- NOTE | 2020-12-17 17:05 | NUR ---
PT ASSESSED AT START OF SHIFT. SHE HAS BEEN IN PLEASANT COOPERATIVE MOOD. EATING AND DRINKING WELL. WALKED AROUND SOME BUT IN THE CHAIR MOSTLY.
[2020-12-17 19:31] VITALS: BP 123/75
--- NOTE | 2020-12-18 03:00 | NUR ---
pt took hs meds w/o any problems at all. she was sitting at the day area calmly watching TV. No hallucinations noted. No comabtive behavior. Was in w.chair. Denies pain.
[2020-12-18 09:22] VITALS: BP 110/68
--- NOTE | 2020-12-18 10:26 | NUR ---
Alert to person and situation only. Denies SI/HI. States she feels stiff, requiring assistance X 1 to transfer to . Calm, cooperative and compliant with some confused speech. Breath sounds clear. Reg HR auscultated. Color pink with brisk capillary refill and palpable peripheral pulses. Brief dry this AM with dried stool around anus, assisted with cleaning. Active bowel sounds over soft, rounded abdomen. Slight redness under inguinal folds, cleaned and nystatin powder applied. Attending groups this AM without s/o distress.
[2020-12-18 19:55] VITALS: BP 138/94
--- NOTE | 2020-12-19 04:56 | NUR ---
12-18-20 CARE TRANSFERRED 1914 OBSERVED PT SITTING IN W/C IN DAY ROOM. LATER PT AAOX2, VSS, RR EVEN AND NONLABORED ON RA. PT DENIES SI/HI AND PT REPORTS PAIN AND IN L.HIP SCORES 5 ON 0-10 SCALE, PAIN HAS BEEN MANAGED WITH PRN MEDICATION. DURING REASSESSMENT PT SCORED AT 3 ON 0-10 SCALE. PT PRESENTED IRRITABLE BUT HAS BEEN COOPERATIVE. ZERO S/S OF ACUTE DISTRESS NOTED, PT WILL CONTINUE TO BE MONITOR PER [facility] PROTOCOL.
[2020-12-19 08:40] VITALS: BP 105/74
--- NOTE | 2020-12-19 09:00 | NUR ---
PT SITTING IN W/C THIS AM. PT ORIENTED TO SELF. PT TOOK MEDS THIS AM WITHOUT ANY ISSUES. PT GETTING READY TO GO TO GROUP. PT WHEELS SELF AROUND THE UNIT VISITING WITH OTHER PEERS.
[2020-12-19 09:58] VITALS: BP 105/74
--- NOTE | 2020-12-19 11:00 | NUR ---
PT AT THIS NURSES COW AND WANTING TO BORROW A PEN OR PENCIL. PT GOING THROUGH THE SPOONS AND LOOKING FOR A PEN. PT EASILY REDIRECTED.
[2020-12-19 19:26] VITALS: BP 99/52
--- NOTE | 2020-12-20 02:22 | NUR ---
12-20-20 CARE TRANSFERRED 0 OBSERVED PT W/C IN HALLWAY. LATER PT AAOX2, VSS, RR EVEN AND NONLABORED ON RA. PT DENIES PAIN AND SI/HI. PT PRESENTS PLEASANT, CALM AND COOPERATIVE THROUGHOUT NURSING ASSESSMENT. DURING MEDICATION ADMIN PT HAD NO DIFFICULTIES. ZERO S/S OF ACUTE DISTRESS NOTED, PT WILL CONTINUE TO BE MONITOR PER [facility] PROTOCOL.
[2020-12-20] MEDS ORDERED: IPRAT-ALBUT 0.5-3 ML INH (07:54)
[2020-12-20] MEDS ORDERED: ATORVASTATIN CA10 MG PO (07:55)
[2020-12-20] MEDS ORDERED: NORVASC5 MG PO (07:56)
[2020-12-20] MEDS ORDERED: DIVALPROEX SOD250 M1 PO (07:56)
[2020-12-20] MEDS ORDERED: SEROQUEL 25 MG25 M1 PO (07:57)
[2020-12-20] MEDS ORDERED: GABAPENTIN 100100 MG PO (07:57)
[2020-12-20] MEDS ORDERED: PROTONIX 20 MG20 M1 PO (07:58)
[2020-12-20] MEDS ORDERED: SEROQUEL 100 M100 M1 PO (07:58)
[2020-12-20] MEDS ORDERED: OXYBUTYNIN 5 MG5 M1 PO (07:59)
[2020-12-20] MEDS ORDERED: SYNTHROID50 MCG PO (07:59)
[2020-12-20 09:20] VITALS: BP 119/55
[2020-12-20 09:24] VITALS: BP 119/55
--- NOTE | 2020-12-20 09:34 | NUR ---
ASSUMED CARE AT 0700 THIS SHIFT. SHE IS A&OX2. SHE IS MOVING HERSELF ABOUT THE UNIT IN A W/C. SHE IS COOPERATIVE WITH STAFF. SHE TOOK HER MORNING MEDICATIONS WITHOUT DIFFICULTY. SHE STATES SHE KNOWS SHE IS GOING TO PLACEMENT TODAY. NO NEW PROBLEMS NOTED OR VOICED. HER BELONGINGS AND DISCHARGE PAPERS WERE GATHERED.
--- NOTE | 2020-12-20 10:49 | NUR ---
ARGELIA D/C NOTE ARGELIA faxed d/c docs to [facility] for pt. ARGELIA will file docs in pt's hospital file. No other needs for SW team to address at this time.
--- NOTE | 2020-12-21 08:39 | D ---
[facility] [place] [address] DISCHARGE SUMMARY Name: FATOU NEWBERRY Room #: 522B-B DIS IN M.R.#: [id number] Admission: 11/29/20 Attend Phys: Derick uSe DO Discharge: 12/20/20 Date of : 48 Report #: [id number] THIS REPORT FOR: cc: Nasreen Jung MD, Amir R. MD Kerstein, Andrew H. DO ~ DOC #: [id number] DERICK Sue DO DATE OF SERVICE: 12/20/2020 INPATIENT PSYCHIATRIC DISCHARGE SUMMARY ATTENDING PSYCHIATRIST: Dr. Derick Sue. [place] MATE: Dr. Estrada. DISCHARGE DIAGNOSES: Major neurocognitive disorder, unspecified, with behavioral disturbance, improved. Bipolar 1 disorder as well. Additional comorbidities include UTI ruled out; hypertension, on Norvasc; mild renal failure. Encourage p.o. intake, chronic lymphedema, refuses CRISTA hose, hyperlipidemia, hypothyroidism, COPD as needed, inhalers, history of tobaccoism, patient discharged to [facility] for memory care. Psychiatric and medical care by receiving facility. DISCHARGE MEDICATIONS: As follows, multivitamin oral daily, ipratropium bromide with albuterol sulfate 0.5-3 and 2.5/3 mL every 4 hours p.r.n. shortness of breath, atorvastatin calcium 20 mg oral daily forhyperlipidemia, amlodipine 5 mg oral daily for hypertension, Depakote ER 750 mg oral at bedtime for mood stabilization, gabapentin 100 mg oral daily for neuropathic pain, Seroquel 75 mg oral at 9:00 a.m. and 9:00 p.m. for psychosis and 100 mg oral at 1400 for psychosis and sundowning, pantoprazole 40 mg oral daily for GERD, levothyroxine sodium 50 mcg oral daily for hypothyroidism, oxybutynin 10 mg oral daily for incontinence. The patient ambulates with a rolling walker. ACTIVITY LEVEL: As tolerated. She does require 24 x 7 supervision. LABORATORY DATA: Most recent laboratories include hematology on 12/01, H and H 15.2 and 45.4. White count 6.7, platelet count 228. Chemistry back on 11/28; total bilirubin 1.1, direct bilirubin 0.2, AST 17, ALT 23, alkaline phosphatase 81, total protein 6.3, albumin 3.6. B12 level 606. TSH 2.377. Additionally, sodium 144 on 11/28, potassium 3.7, chloride 107, bicarbonate 29, anion gap 8, BUN 15. Urinalysis showed 2+ blood, some rbc's, wbc's, few bacteria. Microbiology showed mixed raven. COVID-19 PCR on 12/19 was negative. Only, see if there was an EKG on this admission. On 11/28, it was ventricular rate 64, DE interval 196 milliseconds, QT 406 milliseconds, QTc 419 milliseconds and sinus [address] [address] DISCHARGE SUMMARY Name: FATOU NEWBERRY Room #: 52-B [facility] IN M.R.#: [id number] Admission: 11/29/20 Attend Phys: Derick Sue, Discharge: 12/20/20 Date of : 48 Report #: [id number] rhythm, normal axis. REASON FOR ADMISSION: Back in early November is as follows; a 70-year-old female who presented to the ER has been having increased episodes of violence and memory difficulties for the past few weeks. reports she bangs on the wall and also throws profanities and objects. This is unlike her. She had recent hospitalization for abdominal pain, dehydration at [facility]. HOSPITAL COURSE: The patient was admitted to Geriatric Psychiatry Unit and the patient had pretty profound manic behavior and this took a fair amount of time to get under control. She was on Requip as well, which we titrated her off of slowly over about 2 weeks. In addition, SLUMS was done, which showed a score of 14/30 I believe. After more questioning of the it does sound like there has been progressive cognitive impairment over the last couple of years. We had several family meetings, discussed placement was advisable. There is a chance she would improve, but probably greater chance that long-term memory care will be required. Initially, the was considering risks only, but at the moment, this will be a long-term care placement unless the patient improves. VITAL SIGNS: Temperature 36.3, pulse 69, respirations 18, BP 119/55, O2 sat 97 percent. MUSCULOSKELETAL: Assisted gait kyphotic, posture. MENTAL STATUS EXAM: This is a well-developed, overweight female, appearing stated age. Attention limited. Concentration limited. Speech generally making sense as far as it is understandable, but not having great orientation to the events pertaining to the patient. Mood and affect congruent, euthymic. Denied SI or HI. She denied auditory, visual, or tactile hallucinations. Memory noted to be impaired. Insight limited. Judgment limited. Fund of knowledge below average at this point. Prognosis for this patient is guarded given diagnosis of neurodegenerative disorder, her age of 70, medical comorbidities. DO BUFFY Guzman/SEBLE/BOOI <ELECTRONICALLY SIGNED> By: Derick Sue DO 12/21/20 [id number] Derick Sue, /nt
== END 2020-12-20 09:30 | DRG 885 ==
LOC: SBH
PROVIDERS: Hospitalist; ADMIT Psychiatry & Neurology Psychiatry; ATTEND Psychiatry & Neurology Psychiatry
DX: F31.9 Bipolar disorder, unspecified (principal); F01.51 Vascular dementia, unspecified severity, with behavioral disturbance; N19 Unspecified kidney failure; I10 Essential (primary) hypertension; E78.5 Hyperlipidemia, unspecified; E03.9 Hypothyroidism, unspecified; J44.9 Chronic obstructive pulmonary disease, unspecified; R21 Rash and other nonspecific skin eruption; R59.1 Generalized enlarged lymph nodes; F41.9 Anxiety disorder, unspecified; Z20.822 Contact with and (suspected) exposure to COVID-19; Z85.41 Personal history of malignant neoplasm of cervix uteri; Z90.710 Acquired absence of both cervix and uterus
CPT/HCPCS: 10880

== ENCOUNTER 2020-12-21 23:19 | Emergency (ER) | payer OTHER ==
[~2020-12-21] VITALS: Ht 157.5 cm; Wt 86.2 kg
--- NOTE | ~2020-12-21 | EMS ---
[facility] [address] [place] [address] EMS Patient Care Report Name: FATOU NEWBERRY Room #: DEP MARIAM Bynum#: [id number] Admission: 12/21/20 Attend Phys: Discharge: 12/22/20 Date of : 48 Report #: [id number] THIS REPORT FOR: //name// Report Transmitted: 12/22/2020 08:25 EMS Care Summary [facility] MED-ACT Incident [id number] @ 12/21/2020 22:48 Incident Location [id number] [place] [address] Patient FATOU NEWBERRY Female, 70 Years 1950 Patient Address [address] [place] [address] Patient History Dementia,Hypertension (HTN),Hyperlipidemia,Bipolar II Disorder,Hypothyroidism, Patient Allergies No known allergies, Patient Medications Divalproex Sodium, Gabapentin, Oxybutynin, Pantoprazole, Quetiapine, Levothyroxine, Amlodipine, Atorvastatin, Chief Complaint fell off bed and hit face Disposition Transported No Lights/Bard Dispatch Reason Falls Transported To [facility] Narrative Medic 1144 dispatched to C1 Injuries After a Fall. Patient states that she was [facility] [address] [place] [address] EMS Patient Care Report Name: FATOU NEWBERRY Room #: DEP MARIAM Bynum#: [id number] Admission: 12/21/20 Attend Phys: Discharge: 12/22/20 Date of : 48 Report #: [id number] attempting to get out of bed when she ???soared out of bed. ??? Patient states that she hit her head on the bedframe. Patient denies any loss of consciousness. Patient is not on any blood thinners. Patient denies any neck or back pain. Patient???s only complaint is of pain above left eye where hematoma is located. Upon arrival, patient found lying supine on the ground next to bed. Patient was alert and oriented. No respiratory distress noted. Skin warm, dry, pink. Approximately golf ball size hematoma located just above the left eye. No bleeding noted. No other injuries noted. Patient stood and moved to cot with no incident. Patient moved a cot and taken to ambulance where vital signs were monitored. Patient transported in position of comfort. No changes in condition in route to hospital. Upon arrival, patient moved from cot to bed via sheet drag with no incident. Report given to BAG FILLER. Medic 1144 clear. Initial Vitals @23:15P: 71,R: 16,BP: 116/67,Pain: 2/10,GCS: 15,SpO2: 95,Revised Trauma: 12, @23:08P: 80,R: 16,BP: 129/82,Pain: 2/10,GCS: 15,Temp: 98.2F,SpO2: 95,Revised Trauma: 12, Assessments @23:01MENTAL:Person Oriented,Time Oriented,Place Oriented,Event Oriented,SKIN:HEENT:Head/Face: Swelling,Eyes: Left Pupil: 4-mm,Eyes: Right Pupil: 4-mm,Neck/Airway: No Abnormalities,LUNG SOUNDS:General: No Abnormalities,ABDOMEN:General: No Abnormalities,PELVIS//GI:No Abnormalities,EXTREMITIES:Left Arm: No Abnormalities,Right Arm: No Abnormalities,Left Leg: No Abnormalities,Right Leg: No Abnormalities,PULSE:NEURO:No Abnormalities, Impression Injury of Face Procedures @23:10Surgical Mask on PatientResponse: Unchanged Timeline 22:47,Call Received 22:47,Psap Call 22:48,Dispatched 22:49,En Route 22:53,On Scene 23:00,At Patient 23:07,Depart Scene 23:08,BP: 129/82 M,PULSE: 80,RR: 16 R,SPO2: 95 Ox,ETCO2: ,BG: ,PAIN: 2,GCS: 15, [address] [address] EMS Patient Care Report Name: FATOU NEWBERRY Room #: DEP MARIAM Bynum#: [id number] Admission: 12/21/20 Attend Phys: Discharge: 12/22/20 Date of : 48 Report #: [id number] 23:10,Surgical Mask on Patient,Response: Unchanged 23:15,BP: 116/67 M,PULSE: 71,RR: 16 R,SPO2: 95 Ox,ETCO2: ,BG: ,PAIN: 2,GCS: 15, 23:17,At Destination 23:34,Call Closed Disclaimer v1.1 Copyright 2020 [employer] This EMS Care Summary contains data elements from the applicable legal record (which may be displayed differently). It is designed to provide pertinent information for the following purposes: continuity of care, clinical quality, and state data reporting. The complete legal record is available to ED staff and administrators of the receiving hospital in [employer]'s Patient Tracker. All data is provided "as is."
[~2020-12-21 23:19] MED LIST changes: +ATORVASTATIN CA10 MG PO; +CEFDINIR300 MG PO; +DIVALPROEX SOD250 M1 PO; +GABAPENTIN 100100 MG PO; +IPRAT-ALBUT 0.5-3 ML INH; +OXYBUTYNIN 5 MG5 M1 PO; +PROTONIX 20 MG20 M1 PO; +SEROQUEL 100 M100 M1 PO; +SEROQUEL 25 MG25 M1 PO; +SYNTHROID50 MCG PO; +TYLENOL325 M1 PO
[2020-12-22 00:17] LABS: CALCIUM 9.1 mg/dL (8.5-10.1); POTASSIUM 4.4 mmol/L (3.5-5.1)
[2020-12-22 04:00] VITALS: BP 102/49
== END 2020-12-22 04:32 | disposition home or self-care (01) ==
LOC: ER 23:19
PROVIDERS: Emergency Medicine
DX: S00.83XA Contusion of other part of head, initial encounter (principal); I10 Essential (primary) hypertension; E78.5 Hyperlipidemia, unspecified; J44.9 Chronic obstructive pulmonary disease, unspecified; Z90.89 Acquired absence of other organs; Z90.710 Acquired absence of both cervix and uterus; W06.XXXA Fall from bed, initial encounter; Y93.89 Activity, other specified; Y92.89 Other specified places as the place of occurrence of the external cause; Y99.8 Other external cause status